=== PATIENT | female | born 2005 | race African-American/Black ===

== ENCOUNTER 2025-01-25 14:02 | Emergency (ER) | payer OTHER ==
[~2025-01-25] VITALS: Ht 154.9 cm; Wt 45.0 kg
[2025-01-25 14:08] VITALS: O2SAT 98
[2025-01-25] MEDS ORDERED: IBUPROFEN 400MG TABLET PO ONE (16:45)
[2025-01-25] MEDS ORDERED: LIDOCAINE 5% PATCH TOP SCH (16:45)
[2025-01-25] MEDS ORDERED: METOCLOPRAMIDE HCL 10MG TABLET PO ONE (18:15)
[2025-01-25] MEDS ORDERED: ACETAMINOPHEN 325MG TABLET PO ONE (18:15)
[2025-01-25] MEDS ORDERED: DIPHENHYDRAMINE 25MG CAPSULE PO ONE (18:15)
[2025-01-25] MEDS ORDERED: LIDO-53 TP (18:16)
[2025-01-25] MEDS ORDERED: ACET-2708 MT (18:16)
[2025-01-25] MEDS ORDERED: IBUP-2028 MT (18:16)
[2025-01-25] MEDS ORDERED: CYCL7.5T25 MT (18:16)
[2025-01-25 18:26] VITALS: BP 115/69; PULSE 69; RESP 16; TEMP 37.1; O2SAT 99
== END 2025-01-25 18:27 | disposition home or self-care (01) ==
LOC: ER 14:02
DX: S06.9X9A Unspecified intracranial injury with loss of consciousness of unspecified duration, initial encounter (principal); G44.309 Post-traumatic headache, unspecified, not intractable; M54.50 Low back pain, unspecified; X58.XXXA Exposure to other specified factors, initial encounter; Y93.89 Activity, other specified; Y92.89 Other specified places as the place of occurrence of the external cause; Y99.8 Other external cause status
CPT/HCPCS: 71045; 72100; 99284